=== PATIENT | female | born 1975 | race African-American/Black ===

== ENCOUNTER 2023-11-19 19:50 | Emergency (ER) | payer OTHER ==
[2023-11-19 21:37] LABS: SARS-CoV-2 NAA Rapid Test DETECTED (NotDetected)
== END 2023-11-19 22:12 | disposition home or self-care (01) ==
LOC: CSHERS 19:50
DX: U07.1 COVID-19 (principal); E11.9 Type 2 diabetes mellitus without complications; I10 Essential (primary) hypertension
CPT/HCPCS: 99284